=== PATIENT | female | born 1950 | race African-American/Black ===

== ENCOUNTER 2017-09-23 06:59 | Day surgery (SDC) | payer MEDICARE, OTHER ==
[~2017-09-23] VITALS: Ht 160.1 cm; Wt 80.6 kg
[2017-09-23] VITALS (599 sets, daily range): BP systolic 117–1408; BP diastolic 68–89; PULSE 57–72; TEMP 97.1–98.5; O2SAT 67–100
[~2017-09-23 06:59] MED LIST: ASPIRIN E.C. 8181 MG PO; BENAZEPRIL PO; COREG 3.123.125 MG/T PO; EVISTA 60MG60 MG/TAB PO; HCTZ 25MG TAB25 MG PO; IBUPROFEN800 MG PO; IMDUR 30MG30 MG/TAB PO; LOTENSIN40 MG PO; NORVASC 5MG5 MG/TAB PO; VITAMIN B-1000 MCG/T PO; VITAMIN D PO; VITAMIN D1000 IU PO; [UNRECOGNIZED DRUG - OTHER]
[2017-09-23] MEDS ORDERED: CALCITRATE 3151 TAB PO (07:18)
[2017-09-23] MEDS ORDERED: K-DUR 10 MEQ T10 MEQ PO (07:22)
[2017-09-23 07:43] LABS: MEAN CELL VOLUME 87 fl (80.0-100.0); MEAN CORPUSCULAR HGB CONC 32 g/dl (33.0-37.0); PLATELET COUNT 274 K/mm3 (130-400); RED BLOOD COUNT 4.03 M/mm3 (4.10-5.30); REDCELL DISTRIBUTION WIDTH-CV 14.2 % (11.5-14.5)
[2017-09-23 07:45] LABS: HEMATOCRIT 35.1 % (37.0-47.0); HEMOGLOBIN 11.2 g/dl (12.5-16.0); MEAN CORPUSCULAR HEMOGLOBIN 28 pg (27.0-31.0)
[2017-09-23 07:49] LABS: INR 1.1 (0.8-3.0); PROTHROMBIN TIME 12.4 SECONDS (9.7-12.8)
[2017-09-23 07:53] LABS: CALCIUM 9.4 mg/dL (8.4-10.2); CREATININE, serum 0.72 mg/dL (0.52-1.25); POTASSIUM 3.4 mmol/L (3.4-5.0)
[2017-09-24] VITALS (545 sets, daily range): BP systolic 118–151; BP diastolic 64–79; PULSE 70–74; TEMP 97.2–97.5; O2SAT 90–100
[2017-09-24 05:48] LABS: BASO # 0.1 (0.0-0.2); BASO % 0.6 % (0.0-2.0); EOS # 0.4 (0.0-0.7); EOS % 4.5 % (0-4.0); GRAN # 6.3 (1.4-6.5); GRAN % 73.5 % (42.2-75.2); LYMPH # 1.3 (1.2-3.4); LYMPH % 15.4 % (20.0-51.0); MEAN CELL VOLUME 85 fl (80.0-100.0); MEAN CORPUSCULAR HGB CONC 33 g/dl (33.0-37.0); MEAN PLATELET VOLUME 9.4 fl (7.4-10.4); MONO # 0.5 (0.1-0.6); MONO % 5.7 % (1.7-9.3); PLATELET COUNT 243 K/mm3 (130-400); RED BLOOD COUNT 3.55 M/mm3 (4.10-5.30); REDCELL DISTRIBUTION WIDTH-CV 14.2 % (11.5-14.5)
[2017-09-24 05:52] LABS: HEMATOCRIT 30.3 % (37.0-47.0); HEMOGLOBIN 9.9 g/dl (12.5-16.0); MEAN CORPUSCULAR HEMOGLOBIN 28 pg (27.0-31.0)
[2017-09-24 06:05] LABS: CALCIUM 8.8 mg/dL (8.4-10.2); CREATININE, serum 0.72 mg/dL (0.52-1.25); POTASSIUM 3.3 mmol/L (3.4-5.0)
[2017-09-24] MEDS ORDERED: BRILINTA90 MG PO (09:03)
[2017-09-24] MEDS ORDERED: LIPITOR 40MG TA40 MG PO (09:04)
== END 2017-09-24 10:10 | disposition home or self-care (01) ==
LOC: COL.CAR 06:59 → ICU 13:52 → COL.CAR 09-24 10:10
PROVIDERS: Internal Medicine Cardiovascular Disease; Internal Medicine Interventional Cardiology
DX: I48.0 Paroxysmal atrial fibrillation (principal); I25.119 Atherosclerotic heart disease of native coronary artery with unspecified angina pectoris; M85.80 Other specified disorders of bone density and structure, unspecified site; Z82.49 Family history of ischemic heart disease and other diseases of the circulatory system; I10 Essential (primary) hypertension; Z79.82 Long term (current) use of aspirin; J45.909 Unspecified asthma, uncomplicated; I51.7 Cardiomegaly
CPT/HCPCS: OP; C9600; G0378; J0583; J1644; J2250; J3010; Q9967